=== PATIENT | male | born 1955 | race Caucasian/White ===

== ENCOUNTER → 2018-06-26 14:09 | Outpatient (CLI) | payer MEDICARE, SELFPAY ==
--- NOTE | 2018-06-26 14:16 | XR_ITS ---
XR foot wt bearing RT 3V HISTORY: ITS.REASON: pain ORDERING PHYSICIAN: Kimber Pastrana DPM PATIENT AGE: 63 years COMPARISON: None FINDINGS: No fracture or dislocation. No lytic or blastic change. There is normal mineralization.. The joint spaces are well-preserved. No significant degenerative/arthritic changes. No erosive changes evident. Small area bony exostosis is noted anteriorly at the neck of the talus. There is a small calcaneal spur. IMPRESSION: Small calcaneal spur. Small area of exostosis along the aspect of the neck of the talus No acute finding
== END ==
PROVIDERS: PCP Family Medicine; Visit Provider Podiatrist
DX: L84 Corns and callosities (principal)
CPT/HCPCS: 73630; 87070; 87077; 87186; 87205